=== PATIENT | male | born 1960 | race Caucasian/White ===

== ENCOUNTER 2020-10-11 13:13 | Outpatient (CLI) | payer SELFPAY | END 2020-10-11 23:59 | disposition home or self-care (01) | LOC: VAS 13:13 | DX: Z13.6 Encounter for screening for cardiovascular disorders (principal) ==

== ENCOUNTER 2021-11-24 18:03 | Emergency (ER) | payer OTHER, SELFPAY ==
[~2021-11-24] VITALS: Ht 172.7 cm; Wt 96.4 kg
[2021-11-24] MEDS ORDERED: LIDOCAINE 5% OINTMENT 35GM TP STA (19:11)
[2021-11-24] MEDS ORDERED: bacitracin 15gm ointment TP ONE (19:30)
[2021-11-24] MEDS ORDERED: LIDOcaine 1% W/epiNEPHrine 1:100,000 20ml vial SQ ONE (20:25)
[2021-11-24 22:39] VITALS: BP 129/85
== END 2021-11-24 22:00 | disposition home or self-care (01) ==
LOC: ER 18:03
DX: S43.101A Unspecified dislocation of right acromioclavicular joint, initial encounter (principal); S62.652A Nondisplaced fracture of middle phalanx of right middle finger, initial encounter for closed fracture; S71.111A Laceration without foreign body, right thigh, initial encounter; S20.412A Abrasion of left back wall of thorax, initial encounter; I10 Essential (primary) hypertension; V28.4XXA Motorcycle driver injured in noncollision transport accident in traffic accident, initial encounter; Y93.89 Activity, other specified; Y92.89 Other specified places as the place of occurrence of the external cause; Y99.8 Other external cause status
CPT/HCPCS: 12002; 71045; 73000; 73140; 99284; J3490; J7030; A4565